=== PATIENT | male | born 1945 | race Caucasian/White ===

== ENCOUNTER 2023-12-07 11:32 | Emergency (ER) | payer SELFPAY ==
[~2023-12-07] VITALS: Ht 175.3 cm; Wt 98.2 kg
[~2023-12-07 11:32] MED LIST: BLOOD PRESSURE MED; COMBIVENT INH14.7 GM IH; COUMADIN 22.5 MG/TAB PO; COUMADIN 5MG5 MG/TAB PO; LANTUS100 U/ML SC; NOVOLOG 100U100 U/M1 SC; PRILOTC PO; TOPROL XL 50MG50 MG PO; ZOCOR5 MG PO
[2023-12-07 11:33] VITALS: TEMP 98.1
[2023-12-07] MEDS ORDERED: Albuterol/Ipratropium 3 MG-0.5 MG/3 ML Neb Soln IH ONE (12:30)
[2023-12-07] MEDS ORDERED: oxyCODONE/Acetaminophen 5-325 MG TAB PO ONE (13:00)
[2023-12-07] MEDS ORDERED: Insulin Regular Human (NovoLIN R/HumuLIN R) IV ONE (13:30)
[2023-12-07 14:20] VITALS: BP 142/75; PULSE 109
--- NOTE | 2023-12-07 14:23 | NUR ---
social worker met with patient to assist with a ride home to [place], [place]. Patient stated he was able to contact [facility] and they are enroute to pick him up. Social medrano collaborated with patient's nurse regarding the above information.
== END 2023-12-07 14:20 | disposition home or self-care (01) ==
LOC: COL.ER 11:32
DX: S43.102A Unspecified dislocation of left acromioclavicular joint, initial encounter (principal); M54.6 Pain in thoracic spine; I45.9 Conduction disorder, unspecified; Z87.891 Personal history of nicotine dependence; V89.2XXA Person injured in unspecified motor-vehicle accident, traffic, initial encounter; W22.11XA Striking against or struck by driver side automobile airbag, initial encounter; Y92.410 Unspecified street and highway as the place of occurrence of the external cause
CPT/HCPCS: J1815